=== PATIENT | female | born 1955 | race Caucasian/White ===

== ENCOUNTER 2021-01-01 18:42 | Emergency (ER) | payer MEDICARE, OTHER ==
[2021-01-01] MEDS ORDERED: Voltaren Gel 1% TOP (21:30)
[2021-01-01] MEDS ORDERED: PERCOCET 5/325 T1 EA PO (21:47)
== END 2021-01-01 22:00 | disposition home or self-care (01) ==
LOC: ER1 18:42
DX: S80.01XA Contusion of right knee, initial encounter (principal); S42.292A Other displaced fracture of upper end of left humerus, initial encounter for closed fracture; I10 Essential (primary) hypertension; W01.0XXA Fall on same level from slipping, tripping and stumbling without subsequent striking against object, initial encounter; Y92.009 Unspecified place in unspecified non-institutional (private) residence as the place of occurrence of the external cause
CPT/HCPCS: 73030; 73564; 99283

== ENCOUNTER → 2021-01-21 | Outpatient (CLI) | payer MEDICARE, OTHER ==
[~2021-01-21] MED LIST: PERCOCET 5/325 T1 EA PO; Voltaren Gel 1% TOP
[2021-01-21 12:06] LABS: HEMOGLOBIN 11.1 gm/dl (12.3-15.3); RED BLOOD COUNT 3.77 M/UL (4.00-5.10); WHITE BLOOD COUNT 7.2 K/UL (4.5-11.0)
[2021-01-21 12:28] LABS: BUN/CREATININE RATIO 33 (0-10)
== END ==
LOC: LAB 11:41
PROVIDERS: Nurse Practitioner Family
DX: E87.1 Hypo-osmolality and hyponatremia (principal)
CPT/HCPCS: 36415; 80053; 82550; 85025

== ENCOUNTER → 2021-03-07 | Outpatient (CLI) | payer MEDICARE, OTHER | LOC: CT 10:58 → KOH-I 03-11 15:30 | DX: M51.36 Other intervertebral disc degeneration, lumbar region (principal) | CPT/HCPCS: 36415; 72131; 82565; Q9963; Q9967 ==

== ENCOUNTER → 2021-04-04 | Outpatient (CLI) | payer MEDICARE, OTHER | LOC: LAB 17:01 | DX: N32.1 Vesicointestinal fistula (principal); R39.89 Other symptoms and signs involving the genitourinary system; R63.4 Abnormal weight loss | CPT/HCPCS: 87086 ==

== ENCOUNTER → 2021-05-27 | Outpatient (CLI) | payer MEDICARE, OTHER | LOC: KOH-I 14:19 | DX: M25.512 Pain in left shoulder (principal); S42.302D Unspecified fracture of shaft of humerus, left arm, subsequent encounter for fracture with routine healing | CPT/HCPCS: 73030 ==

== ENCOUNTER 2021-11-23 14:01 | Emergency (ER) | payer MEDICARE, OTHER | END 2021-11-23 16:27 | disposition home or self-care (01) | LOC: ER1 14:01 | DX: S91.312A Laceration without foreign body, left foot, initial encounter (principal); I10 Essential (primary) hypertension; W26.8XXA Contact with other sharp object(s), not elsewhere classified, initial encounter; Y92.009 Unspecified place in unspecified non-institutional (private) residence as the place of occurrence of the external cause | CPT/HCPCS: 12001; 99282 ==

== ENCOUNTER 2022-02-24 06:07 | Inpatient (IN) | payer MEDICARE, OTHER ==
[~2022-02-24] VITALS: Ht 160 cm; Wt 86.2 kg
[2022-02-24 06:44] LABS: HEMOGLOBIN 16.1 gm/dl (12.3-15.3); RED BLOOD COUNT 5.19 M/UL (4.00-5.10); WHITE BLOOD COUNT 8.7 K/UL (4.5-11.0)
[2022-02-24 07:10] LABS: BUN/CREATININE RATIO 23 (0-10)
[2022-02-24] MEDS ORDERED: ZOLPIDEM TARTRA10 MG PO (10:42)
[2022-02-24] MEDS ORDERED: GABAPENTIN300 MG PO (10:43)
[2022-02-24] MEDS ORDERED: VAGIFEM10 MCG VG (10:43)
[2022-02-24] MEDS ORDERED: ONDANSETRON HCL4 MG PO (10:44)
[2022-02-24] MEDS ORDERED: HYDROCODON-ACE1 EAC6 PO (10:44)
[2022-02-24] MEDS ORDERED: DULOXETINE HCL30 MG PO (10:45)
[2022-02-24] MEDS ORDERED: VALSARTAN-HCTZ1 EACH PO (10:45)
[2022-02-24] MEDS ORDERED: ONE-A-DAY WOME1 EAC5 PO (10:45)
[2022-02-24] MEDS ORDERED: ZYRTEC10 MG PO (10:46)
[2022-02-25 02:38] LABS: HEMOGLOBIN 12.6 gm/dl (12.3-15.3); RED BLOOD COUNT 4.07 M/UL (4.00-5.10); WHITE BLOOD COUNT 5.1 K/UL (4.5-11.0)
[2022-02-25 03:14] LABS: BUN/CREATININE RATIO 24 (0-10)
[2022-02-26 03:28] LABS: HEMOGLOBIN 13.5 gm/dl (12.3-15.3); RED BLOOD COUNT 4.4 M/UL (4.00-5.10); WHITE BLOOD COUNT 5.6 K/UL (4.5-11.0)
[2022-02-26 03:31] LABS: BUN/CREATININE RATIO 17 (0-10)
[2022-02-27 08:50] LABS: HEMOGLOBIN 12.7 gm/dl (12.3-15.3); RED BLOOD COUNT 4.15 M/UL (4.00-5.10)
[2022-02-27 08:54] LABS: WHITE BLOOD COUNT 2.8 K/UL (4.5-11.0)
[2022-02-27 09:01] LABS: BUN/CREATININE RATIO 18 (0-10)
[2022-02-28 07:08] LABS: HEMOGLOBIN 12.2 gm/dl (12.3-15.3); RED BLOOD COUNT 3.99 M/UL (4.00-5.10); WHITE BLOOD COUNT 2.9 K/UL (4.5-11.0)
[2022-02-28 07:24] LABS: BUN/CREATININE RATIO 18 (0-10)
[2022-02-28] MEDS ORDERED: PROTONIX 40 MG40 M1 PO (13:49)
[2022-02-28] MEDS ORDERED: K-TAB ER20 MEQ PO (13:49)
[2022-02-28] MEDS ORDERED: NORVASC10 MG PO (13:49)
[2022-02-28] MEDS ORDERED: HYDRALAZINE HCL25 MG PO (13:59)
[2022-02-28] MEDS ORDERED: PHENERGAN 12.12.5 M1 PO (13:59)
[2022-02-28] MEDS ORDERED: ACIDOPHILUS1 EACH PO (14:03)
[2022-02-28] MEDS ORDERED: COLACE100 MG PO (14:03)
== END 2022-02-28 15:22 | disposition home or self-care (01) | DRG 389 ==
LOC: ER1 06:07 → CDU 08:38 → M/S 08:38
PROVIDERS: Internal Medicine; Nurse Practitioner; Physician Assistant; ADMIT Internal Medicine Infectious Disease
DX: K56.609 Unspecified intestinal obstruction, unspecified as to partial versus complete obstruction (principal); E87.1 Hypo-osmolality and hyponatremia; F11.20 Opioid dependence, uncomplicated; I10 Essential (primary) hypertension; D75.1 Secondary polycythemia; K57.90 Diverticulosis of intestine, part unspecified, without perforation or abscess without bleeding; E86.0 Dehydration; Z20.822 Contact with and (suspected) exposure to COVID-19; M19.91 Primary osteoarthritis, unspecified site; Z98.890 Other specified postprocedural states; G89.29 Other chronic pain; Z96.659 Presence of unspecified artificial knee joint; Z96.649 Presence of unspecified artificial hip joint; Z82.49 Family history of ischemic heart disease and other diseases of the circulatory system; Z85.828 Personal history of other malignant neoplasm of skin; Z80.3 Family history of malignant neoplasm of breast; Z85.038 Personal history of other malignant neoplasm of large intestine
CPT/HCPCS: 0240U; 36415; 71045; 80053; 82550; 82553; 83605; 83690; 83735; 84484; 85025; 85027; 93005; 96374; 96375; 97161; 99285; J0360; J1650; J1885; J2270; J2405; J2550; Q9967